=== PATIENT | male | born 1985 | race Caucasian/White ===

== ENCOUNTER → 2023-12-11 09:47 | Outpatient (REF) | payer OTHER, SELFPAY | LOC: RCS 09:47 | PROVIDERS: ATTENDING PHYSICIAN Internal Medicine | DX: R00.2 Palpitations (principal) | CPT/HCPCS: 93225; 93226 ==

== ENCOUNTER 2025-09-21 11:17 | Day surgery (SDC) | payer BC, SELFPAY ==
[2025-09-21] VITALS (9 sets, daily range): BP systolic 111–135; BP diastolic 72–88; BMI 35.7
[2025-09-21 05:09] LABS: Hematocrit 47.0 % (39.0-52.0); Hemoglobin 16.2 g/dL (13.0-18.0); Mean Corp Hgb Conc. 34.5 g/dL (33.0-37.0); Mean Corpuscular Volume 90.0 fL (80.0-94.0); Nucleated Red Blood Cells % 0 % (-); Platelet Count 231 10^3/uL (130-400); Red Cell Dist. Width 12.4 % (11.5-14.5)
[2025-09-21] MEDS: TORADOL 15 MG IV (05:22)
[2025-09-21 05:34] LABS: ALT (SGPT) 15 U/L (0-50); AST (SGOT) 17 U/L (17-59); Albumin 3.4 g/dl (3.5-5.0); Alkaline Phosphatase 61 U/L (38-126); Blood Urea Nitrogen 12 mg/dl (9-20); Calcium 8.3 mg/dl (8.4-10.2); Carbon Dioxide 23 mmol/L (22-30); Chloride 106 mmol/L (98-107); Estimated Creatinine Clearance > 125 ml/min; Glucose 90 mg/dl (70-99); Potassium 4.0 mmol/L (3.5-5.1); Sodium 135 mmol/L (135-145); Total Protein 5.8 g/dl (6.3-8.2); eGFR > 60.00
--- NOTE | 2025-09-21 05:41 | ED.GENMED ---
History of Present Illness
General
Chief Complaint: Anal/Rectal Problem
Source: patient
Exam Limitations: none
Time Seen by Provider: 09/21/25 03:45
Nursing documentation reviewed up to this point in time: agreed with
History of Present Illness
History of Present Illness:
Note:
CHIEF COMPLAINT(S)
Pain and lump in the perianal area.
HISTORY OF PRESENT ILLNESS
The patient is a 40-year-old male who presents with a complaint of pain and a lump in the perianal area. Two nights ago, the patient experienced a cough, during which he noted the onset of pain and the presence of a lump under the anus. The patient
describes the lump as causing significant discomfort, making it difficult to find a comfortable sleeping position, although he eventually managed to sleep. Today, the patient reports worsening symptoms, including difficulty walking due to pain. The
patient sought care at an urgent care facility earlier today, where he was advised that it may be a hemorrhoid, but was unsatisfied with the recommendation of using coconut oil for treatment. The patient decided to seek further care due to
increasing pain and minimal relief from prior interventions. He mentions that a CAT scan was discussed as a potential next step to investigate the issue further.
PHYSICAL EXAM
General: Patient is alert and in no acute distress during the exam. Resting comfortably on a padded cushion that he brought from home
Skin: No skin abnormalities noted around the area of concern.
Rectal Exam: Normal appearing anus. There is tenderness noted distal to the rectum without induration. No visible signs of external hemorrhoid or fissure. Good rectal tone
PROBLEM LIST
Acute Problems:
1. Perianal pain
2. Lump in perianal area
PLAN
A CAT scan is considered to further evaluate the underlying cause of the perianal lump and pain, as there is no visible indication of an external hemorrhoid or fissure.
DIFFERENTIAL DIAGNOSIS
The Differential Diagnosis includes, in no particular order and is not limited to:
1. Internal hemorrhoid
2. Anal abscess
3. Perianal hematoma
4. Anal fissure
5. Pilonidal cyst
6. Rectal prolapse
7. Inferior pelvic floor dysfunction
8. Anorectal infection
9. Anal carcinoma
10. Inflammatory bowel disease-related anorectal inflammation
CARE-UPDATE
09/21/25 - 05:42
CT scan reveals a perianal abscess from 1 to 5 oclock position, 3.2 cm in AP direction, without definitive supralevator involvement. Awaiting response from Dr. Noel Garcia for further surgical evaluation.
Disposition:
SUMMARY OF ENCOUNTER
The patient, a 40-year-old male, was seen in the emergency department for a perianal abscess. The abscess was confirmed via CT scan. Dr. Noel Garcia from colorectal surgery is scheduled to perform a bedside drainage of the abscess. The patient
is currently NPO (nothing by mouth) in preparation for this procedure.
DISPOSITION
Anticipated discharge to home after the procedure.
MANAGEMENT OF THE PATIENTS CARE WAS DISCUSSED WITH
Dr. Noel Garcia, colorectal surgery, who will perform the drainage of the perianal abscess.
PLAN
Proceed with bedside drainage of the perianal abscess.
PATIENT EDUCATION AND COUNSELING
The patient was informed about the procedure planned for drainage of the perianal abscess and the expected recovery process. There was no request for further intervention at this time.
MEDICAL DECISION MAKING
-Complexity of Data Reviewed:
The differential diagnosis included internal hemorrhoid, anal abscess, perianal hematoma, anal fissure, pilonidal cyst, rectal prolapse, inferior pelvic floor dysfunction, anorectal infection, anal carcinoma, and inflammatory bowel disease-related
anorectal inflammation.
-Category 3:
Discussion of management was conducted with Dr. Noel Garcia, colorectal surgeon.
DIAGNOSIS
Perianal abscess (ICD-10: K61.3)
Phy Exam
Physical Exam
Physical Exam:
.
Course
Orders/Labs/Results
Orders:
Orders
09/21/25 04:38
CT Pelvis With Iv Contrast Urgent
Comment:
Reason For Exam: caridad rectal ttp, induration
09/21/25 04:46
Complete Blood Count/With Diff Urgent
Comprehensive Metabolic Panel Urgent
09/21/25 05:20
Ketorolac [Toradol] 15 mg .ROUTE .STK-MED ONE
09/21/25 05:21
Ketorolac [Toradol] 15 mg IV NOW STA
09/21/25 Breakfast
NPO
Allow oral meds: Yes
Allow clear liquids: No
NPO with Ice Chips: Yes
09/21/25 09:18
HYDROmorphone [Dilaudid] 0.25 mg IV Q4HPRN PRN
HYDROmorphone [Dilaudid] 0.5 mg IV Q4HPRN PRN
09/21/25 09:30
0.9% Sodium Chloride 1000 ml [Nss] 1,000 ml IV 125 mls/hr
09/21/25 11:03
Bupivacaine Mpf 0.25% [Sensorcaine-Mpf 0.25% Vial] 30 ml .ROUTE .STK-MED ONE
Dexamethasone Pf [Decadron] 10 mg .ROUTE .STK-MED ONE
09/21/25 11:04
Lidocaine Mpf 1% [Xylocaine-Mpf 1% Vial] 30 ml .ROUTE .STK-MED ONE
09/21/25 11:07
Fentanyl Citrate/Pf [Sublimaze] 100 mcg .ROUTE .STK-MED ONE
Lidocaine HCl/Pf [Xylocaine-Mpf 1% Vial] 50 mg .ROUTE .STK-MED ONE
Midazolam HCl [Versed] 2 mg .ROUTE .STK-MED ONE
Propofol [Diprivan] 40 ml .ROUTE .STK-MED
09/21/25 11:08
Dexamethasone Sod Phosphate [Decadron] 20 mg .ROUTE .STK-MED ONE
Lidocaine HCl/Pf [Xylocaine-Mpf 1% Vial] 50 mg .ROUTE .STK-MED ONE
Ondansetron Injectable [Zofran] 4 mg .ROUTE .STK-MED ONE
09/21/25 11:15
Bupivacaine 0.25%Pf/Epinephrin [Sensorcaine-Epi 0.25%-0.0005] 30 ml .ROUTE .STK-MED ONE
09/21/25 11:17
Fentanyl Citrate/Pf [Sublimaze] 25 mcg IV [id number] PRN
HYDROmorphone [Dilaudid] 0.25 mg IV PACU-Q5MPRN PRN
HYDROmorphone [Dilaudid] 0.5 mg IV PACU-Q5MPRN PRN
Ondansetron Injectable [Zofran] 4 mg IV PACU-ONCEPRN PRN
Prochlorperazine [Compazine] 5 mg IV PACU-ONCEPRN PRN
Notify MD As Directed
Notify physician if: for SDS patients with known or suspected sleep obstructive sleep apnea, monitor in the
PACU.
Notify MD for any apneic/desaturation episodes
O2 Therapy [RESP] Urgent
Titrate/Wean O2 to maintain O2 sat greater than (%): 92
Special Instructions: -Provide supplemental oxygen to achieve O2 sat of 92% or greater.
-After 15 min, may wean O2 and discontinue if patient is able to maintain O2 sat of 92%
or greater during recovery period.
If patient is a discharge home, without oxygen therapy, notify anestheiologist if
unable to maintain O2 SAT of 92% or greater on room air for MD clearance.
09/21/25 11:22
Ketorolac [Toradol] 15 mg IV Q6HPRN PRN
09/21/25 11:30
Normosol (Mult Electrolytes) [Normosol-R/Plasmalyte-A] 1,000 ml IV PER PROTOCOL
09/21/25 12:00
Flush (0.9% Sodium Chloride) [Flush (Nss)] See Dose Instructions IV PER PROTOCOL
09/21/25 12:14
Acetaminophen 1000MG/100Ml [Ofirmev] 1,000 mg in 100 ml .ROUTE .STK-MED
09/21/25 12:17
HYDROmorphone [Dilaudid] 1 mg .ROUTE .STK-MED ONE
09/21/25 12:23
Sugammadex Sodium [Bridion] 200 mg .ROUTE .STK-MED ONE
Abnormal Lab Results
09/21/25
04:46
WBC 13.4 H 10^3/uL
(4.8-10.8)
Absolute Neuts (auto) 8.6 H 10^3/uL
(1.4-6.5)
Absolute Monos (auto) 1.5 H 10^3/uL
(0.1-0.6)
Monocytes % 11.4 H %
(1.7-9.3)
Calcium 8.3 L mg/dl
(8.4-10.2)
Total Protein 5.8 L g/dl
(6.3-8.2)
Albumin 3.4 L g/dl
(3.5-5.0)
09/21/25 04:46
09/21/25 04:46
Vital Signs
Initial and Last Documented VS:
Initial Vital Signs
Temp Pulse Resp BP Pulse Ox
97.0 F 92 16 135/88 96
09/21/25 03:38 09/21/25 03:38 09/21/25 03:38 09/21/25 03:38 09/21/25 03:38
Last Documented Vital Signs
Temp Pulse Resp BP Pulse Ox
99.1 F 100 20 119/82 91
09/21/25 12:55 09/21/25 13:19 09/21/25 13:19 09/21/25 13:19 09/21/25 13:19
*Radiology
Radiology exam reviewed: radiology read reviewed
*Pulse Oximetry
SaO2: 96
Oxygen Mode of Delivery: Room air
Patient hypoxic: no
*Critical Care Note
Total Time (30-74mins, 75-104mins- exclusive of procedures): Not Applicable
Update Note
Update Note:
NAME: STEPHANIE DE LA TORRE
DATE OF EXAM: 09/21/2025
Patient No: [id number]
Physician: TRINI
Date of : 1985
Past Medical History (entered by Technologist):
Reason For Exam (entered by Technologist):
Other Notes (entered by Technologist): hx 'coughed and farted' at the same time and now has progressively worsening rectal pain. using prep H which is not helping
Additional Information (per [facility] Radiologist):
CT PELVIS WITH CONTRAST
COMPARISON: None
IMPRESSION:
Perianal abscess along the left side of the anal canal from the 1:00 to the 5 o'clock position measuring 3.2 cm AP. No definite supralevator component. CT lacks sensitivity for fistula assessment.
Case finalized on 09/21/25 05:34 EDT
Peter Donis M.D.
This report has been electronically signed and verified by the Radiologist whose name is printed above.
Dr Garcia or an associate will be in to drain the abcess
ED Attending Note
-
Portions of this chart may have been created with voice recognition software.� Occasional wrong word or��sound alike� substitutions may have occurred due to the inherent limitations of voice recognition software.
Discharge Plan
Departure
Patient Disposition: OR
Admit to: OR
Presentation/result/management discussed w/ accepting MD/DO: Jose
Condition: Good
Discharge Problem:
Abscess, perianal
Interventions
Interventions:
*Risk Screen - Suicide Last Done: 09/21/25 03:38
*General Assessment Last Done: 09/21/25 03:51
*Neglect/Abuse Screening Last Done: 09/21/25 03:51
*ED COVID-19 Vaccine History Last Done: 09/21/25 03:51
*ED Influenza Vaccine History Last Done: 09/21/25 03:51
[facility] Fall Risk Assessment Tool Last Done: 09/21/25 03:52
*Nursing Disposition Last Done: 09/21/25 10:52
ED-Skin Assessment Last Done: 09/21/25 03:52
Discharge Date and Time
Discharge Date/Time: 09/21/25 10:53
--- NOTE | 2025-09-21 08:50 | HPS.HSE ---
Family Physician
-
Family Physician: NOT KNOW UNKNOWN - PT DOES
Chief Complaint
-
perianal pain
History of Present Illness
40-year-old male with no PMH who presents with a few days of perianal pain that worsened over the last day. He denies any fevers, difficulty urinating or change in bowel habits. He denies any drainage or bleeding. In the ED, his WBC was [address] scan showed a 5 cm left perianal abscess.
Medical History
Past Medical History
Past Medical History: Reports None
Past Surgical History: Reports Other (Adenoids, tooth extraction x 2 (most recent extraction 8 days ago requiring 7 days of amoxicillin))
Social History
Tobacco: Smoker (1 pack/day for 25 years)
Alcohol: Occasional
Drug: None
Personal:
Living: With Family
Family History
Family History: Other (Colon cancer in paternal grandmother in her 80s)
Allergies / Home Medications
Allergies reflects when Allergies were last updated in [facility].
Home Medications with original date entered in [facility]
Allergy/Medication List:
NKDA
Review of Systems
-
A 12 point ROS was completed and negative except as noted: Yes
Physical Exam
Vital Signs
Vital Signs
Temp Pulse Resp BP Pulse Ox
97.0 F 76 18 116/75 98
09/21/25 03:38 09/21/25 06:48 09/21/25 06:48 09/21/25 06:48 09/21/25 06:48
Physical Exam
General: Well Developed, Well Nourished and No Apparent Distress
HEENT: NormoCephalic and Atraumatic
Respiratory: Non Labored Respirations
GI: Soft, Non Tender and Non Distended
Rectal: Other (Palpable induration with some fluctuance in the left anterior position within 1 to 2 cm of the anal verge; induration extending 5-6 cm from the anal verge; exquisitely tender; minimal erythema)
Skin: Warm and Dry
Neuro: AO x 3
Laboratory Results
-
09/21/25 04:46
09/21/25 04:46
Laboratory Results
Total Bilirubin 1.0 mg/dl (0.2-1.3) 09/21/25 04:46
AST 17 U/L (17-59) 09/21/25 04:46
ALT 15 U/L (0-50) 09/21/25 04:46
Alkaline Phosphatase 61 U/L (38-126) 09/21/25 04:46
Data Reviewed
-
CT Scan: Image Personally Visualized and interpreted, Report Reviewed by me and Discussed with Patient
Lab Data: Labs Reviewed by me and Discussed with Patient
Impression/Plan
-
IMPRESSION: 40-year-old healthy male, 58-[id number] smoking history, who presents with perianal pain for 3-4 days, found to have a left perianal 5 cm abscess
PLAN:
�Keep n.p.o., start IVF
� Pain control with Toradol and Dilaudid as needed
� Will hold off on antibiotics and proceed with incision and drainage in the OR
�Discussed risks, benefits and alternatives with the patient, including but not limited to treating with antibiotics, failure of treatment, inadequate drainage at the bedside
�Patient agreeable to proceeding with I&D in the OR
� No need for DVT PPx
� Will likely DC after surgery
--- NOTE | 2025-09-21 12:45 | W.IMMPOSTOP ---
Addendum entered and electronically signed by Josue Barboza MD 09/21/25 13:21:
updated spouse over the phone and patient in PACU (patient still somewhat groggy)
Original Note:
Surgical Immed Post Op Note
-
Primary Surgeon: Josue Barboza MD
Assisting Surgeon: None
Pre-op Diagnosis: Perianal abscess
Post-op Diagnosis: Perianal abscess
Procedure Performed: Incision and drainage of perianal abscess, bilateral pudendal nerve block
Anesthesia Type: General
Specimen / Cultures: None
Estimated Blood Loss: 5 mL
Complications: None
Operative Findings: Left anterior ischiorectal abscess; performed cruciate incision about 1 cm from the anal verge; probed with finger fracture technique to break up loculations; suctioned about 10 cm of pus; hemostasis assured; abscess cavity
irrigated; no concerning anorectal pathology; no proctitis and no fistula identified
--- NOTE | 2025-09-21 12:48 | OR.RPT ---
Operative Report
Operative Report
DATE OF OPERATION: 09/21/2025
SURGEON: Josue Barboza MD
PREOPERATIVE DIAGNOSIS: Perianal abscess
POSTOPERATIVE DIAGNOSIS: Perianal abscess
OPERATION: Incision and drainage of left anterior ischiorectal abscess, bilateral pudendal nerve block
ASSISTANTS:
1. None
ANESTHESIA: General
ESTIMATED BLOOD LOSS: 5 mL
FINDINGS:
1. Drained about 10 mL of purulence; no fistula identified; no masses or proctitis
SPECIMENS:
1. None
DRAINS: None
COMPLICATIONS: None
INDICATIONS: The patient is a 40-year-old male who presented with several days of perianal pain that worsened over the last day. He was found to have a left-sided perianal abscess of about 5 cm. He has never had an abscess before. I recommended
incision and drainage. Due to the proximity to the anal verge and the size, I recommended proceeding with operative drainage. I reviewed the alternatives, including drainage at the bedside and antibiotics, and reviewed the risks and benefits of
each. Risks described included, but not limited to bleeding, infection, urinary retention, damage to nearby structures such as the anal sphincter, recurrence, and anesthetic risks. The patient understood and agreed to proceed. The consent was signed
and placed in the chart.
PROCEDURE IN DETAIL: The patient was taken to the operating room. Sequential compression devices were placed bilaterally. Per anesthesia, the decision was made to intubate the patient for this surgery. On the stretcher, general anesthesia was
induced and the patient was intubated without complication. The patient was placed on the operating table in prone position. Two seat belts were secured around the legs and upper back. The buttocks were taped apart. The perineum was shaved,
prepped and draped in the usual fashion. A time-out was performed verifying the correct patient, procedure, operative site, positioning, and special equipment.
Local anesthesia used was a mixture of 30 mL of 0.25% Marcaine with epinephrine, 30mL of 1% lidocaine plain and 0.6 mg of dexamethasone. 40 mL was injected perianally at the beginning of the case. The anorectal exam was performed assessing all four
quadrants of the anal canal using Hill-Sims retractors in progressively increasing size. There was a large fluctuant area in the left anterior perianal region. The fluctuant area was within 1 to 2 cm of the anal verge. There was minimal
blanching erythema at the apex. There was palpable induration extending 5-6 cm from the anal verge. There was no concerning pathology within the anal canal. Specifically, there were no masses, no proctitis and no visible internal openings.
A cruciate incision was made about 1 cm from the anal verge at the apex of the abscess. Purulent material was encountered and suctioned. I estimate about 10 mm of pus was evacuated. The abscess cavity was probed and loculations were broken up.
The cavity was copiously irrigated. The corners of the incision were excised. The anal canal was evaluated once more and there was no fistula. The remaining 20 mL of local were injected. 5 mL was injected bilaterally for a pudendal nerve block. 10
mL was injected around the surgical site and perianally. Hemostasis was reassessed once more using the small Hill-Sims and was confirmed. A corner of gauze was placed within the abscess cavity.
At this point, the procedure was complete. All needle, sponge and instrument counts were correct. The patient tolerated the procedure well and was transferred to the recovery room in stable condition with gauze dressing in place secured with silk
tape.
DICTATED BY: Josue Barboza MD
== END 2025-09-21 14:42 | disposition home or self-care (01) ==
LOC: PACU 11:17
PROVIDERS: ATTENDING PHYSICIAN Surgery; EMERGENCY PHYSICIAN Student in an Organized Health Care Education/Training Program
DX: K61.0 Anal abscess (principal); K62.89 Other specified diseases of anus and rectum
CPT/HCPCS: 46050; 72193; 80053; 85025; 96374; 96375; 99284; Q9967